=== PATIENT | female | born 1970 ===

== ENCOUNTER 2017-11-14 00:32 | Inpatient (IN) | payer OTHER ==
[2017-11-13 14:12] LABS: INR 0.94
[~2017-11-14] VITALS: Ht 154.9 cm; Wt 85.3 kg
[2017-11-14] VITALS (9 sets, daily range): BP systolic 116–136; BP diastolic 68–95
[~2017-11-14 00:32] MED LIST: AREDS PO; B12/1TAB3 PO; FLUN8.9H INH; LORA1TAB69 PO; MAX75 PO; [UNRECOGNIZED DRUG - OTHER] ASDIRECTED
--- NOTE | 2017-11-14 04:28 | HISTORY AND PHYSICAL ---
DATE OF ADMISSION: November 14, 2017 IDENTIFICATION, CHIEF COMPLAINT Carleen is a 46-year-old woman with a chief complaint of left knee pain. HISTORY OF PRESENT ILLNESS Patient has a longstanding history of left knee arthritis that is progressively painful and debilitating, refractory to conservative care. Surgery is indicated to relieve symptoms after failure of nonoperative measures. PAST MEDICAL HISTORY Notable for generally excellent health. She does have some allergy and exercise -induced asthma. CURRENT MEDICATIONS She takes Claritin once a day, no prescription medicine. ALLERGIES She does have a hiving reaction to TYLENOL. No other drug allergies. PAST SURGICAL HISTORY Operations include five shoulder surgeries, three prior knee surgeries, two wrist operations, treatment for tubal ectopic , hysterectomy and tonsillectomy. FAMILY HISTORY Noncontributory. SOCIAL HISTORY Negative for tobacco and alcohol use. REVIEW OF SYSTEMS: Negative. PHYSICAL EXAMINATION GENERAL: This is a well-developed, well-nourished female who appears stated age. HEENT: She is normocephalic, atraumatic. NECK: Supple. LUNGS: Clear. HEART: Regular. ABDOMEN: Soft. ORTHOPEDIC EXAM: The knee is stiff at end range. She has an effusion is present. Extensor function is intact. Gross stability is good. RADIOGRAPHIC DATA Radiographs demonstrate end-stage DJD. ASSESSMENT Left knee end-stage degenerative joint disease, progressively painful and debilitating, refractory to conservative care. PLAN Per patient request, will proceed with total knee arthroplasty. Nature of the procedure, risks, benefits, and nonoperative alternatives are reviewed. Risks of the procedure include, but are not limited to, , major medical or anesthetic complication, infection, neurovascular injury, blood transfusion, stiffness, scarring, fracture, tendon rupture, instability, implant loosening, migration or failure, persistent or recurrent pain, need for additional surgery , and other unforeseen. She understands and wishes to proceed. Signed permit was placed in the chart, no guarantees are given or implied. BRIDGER
[2017-11-14] MEDS ORDERED: TRANEXAMIC AC 1000 MG/10ML SDV 1,000 MG in DEXTROSE 5% 50 ML BAG 50 ML IV ONE (09:15)
[2017-11-14] MEDS ORDERED: NORMOSOL R SOLN(*) 1000 ML BAG 1,000 ML IV PRN ×2 (09:15→12:35)
[2017-11-14] MEDS ORDERED: cloNIDine EPIDUR INJ 100MCG/ML 40 MCG, ROPIVACAINE 0.5% 20 ML VIAL 25 ML, EPINEPHrine H... INJ ONE (09:15)
[2017-11-14] MEDS ORDERED: PREGABALIN 150 MG CAPSULE PO ONE (09:15)
[2017-11-14] MEDS ORDERED: LIDOCAINE/SOD BICARB 8.4% SYR ID ONE (09:15)
[2017-11-14] MEDS ORDERED: FAMOTIDINE 20 MG TAB PO ONE (09:15)
[2017-11-14] MEDS ORDERED: CELECOXIB 200 MG CAP PO ONE (09:15)
[2017-11-14] MEDS ORDERED: ceFAZolin(*) 2GM/D5W 50ML 50 ML IVPB ONE (09:15)
[2017-11-14] MEDS ORDERED: MIDAZOLAM 2 MG/2 ML VIAL IVP PRN (09:15)
[2017-11-14] MEDS ORDERED: PROPOFOL EMUL(*) 10MG/ML 20 ML 20 ML ONE (10:19)
[2017-11-14] MEDS ORDERED: DEXAMETHASONE SOD PHOS 10MG/ML ONE (10:19)
[2017-11-14] MEDS ORDERED: ONDANSETRON 4 MG/2 ML VIAL ONE (10:19)
[2017-11-14] MEDS ORDERED: LACTATED RINGER 3000 ML BAG IR ONE (11:24)
[2017-11-14] MEDS ORDERED: METOPROLOL TART 5 MG/5 ML VIAL ONE (11:26)
[2017-11-14] MEDS ORDERED: BISACODYL 10 MG SUPP PR PRN (12:35)
[2017-11-14] MEDS ORDERED: BENZOCAINE/MENTHOL 1 EACH LOZG PO PRN (12:35)
[2017-11-14] MEDS ORDERED: diphenhydrAMINE 50 MG/ML VIAL IVP PRN (12:35)
[2017-11-14] MEDS ORDERED: diphenhydrAMINE 25 MG CAP PO PRN (12:35)
[2017-11-14] MEDS ORDERED: PROMETHAZINE 25 MG/ML 1 ML AMP IVP PRN (12:35)
[2017-11-14] MEDS ORDERED: FLUSH 10 ML SYR IVP PRN (12:35)
[2017-11-14] MEDS ORDERED: ZOLPIDEM TARTRATE 5 MG TAB PO PRN (12:35)
[2017-11-14] MEDS ORDERED: fentaNYL CITR 100 MCG/2 ML AMP ONE ×2 (13:03→13:35)
--- NOTE | 2017-11-14 13:35 | RADIOLOGY IMAGING REPORT ---
FACILITY: [facility] PATIENT NAME: Carleen Naik : 1970 MR: [id number] V: [id number] EXAM DATE: ORDERING PHYSICIAN: DAT TUCKER TECHNOLOGIST: Location: Patient: Carleen Naik : 1970 Visit/Account:[id number] Date of Sevice: 11/14/2017 Exam type: KNEE LIMITED LEFT History: Status post left total knee arthroplasty Comparison: None. Findings: AP and lateral views of the left knee demonstrate a left knee arthroplasty in good anatomic alignment . Soft tissue gas and skin paty project over the anterior aspect this postoperative knee IMPRESSION: 1. As above Report Dictated By: Mayuri Morrison MD at 11/14/2017 1:31 PM Report E-Signed By: Mayuri Morrison MD at 11/14/2017 1:32 PM WSN:[id number]
[2017-11-14] MEDS: oxyCODONE HCL 5 MG CAP PO PRN ×3 (14:10→22:18)
--- NOTE | 2017-11-14 14:21 | Hospitalist Progress Note ---
Subjective Progress Notes Subjective Patient seen post-op. She reports doing well. No CP/SOB/N/V. Reviewed PMHx and medications. Physical Exam Vital Signs Date Time Temp Pulse Resp B/P (MAP) Pulse Ox O2 Delivery O2 Flow Rate FiO2 11/14/17 14:08 97.8 82 16 132/84 (100) 95 Nasal Cannula 2.0 Intake and Output 11/15/17 06:59 Intake Total 3000 ml Output Total 20 ml Balance 2980 ml Intake IV Total 1500 ml Other 1500 ml Output Estimated Blood Loss 20 ml General Appearance: Alert, Awake Cardiovascular: Regular Rate and Rhythm Respiratory: Clear to Auscultation Assessment and Plan Problems: (1) HTN (hypertension) Status: Chronic Assessment & Plan: Will monitor BPs and resume her Maxzide as needed. (2) S/P knee replacement Status: Acute Assessment & Plan: She appears stable post-op. She has no history of DVT/PE. She will be on aspirin 325mg daily for prophylaxis as per Dr. Go. ANJEL SYED MD Nov 14, 2017 14:20
--- NOTE | 2017-11-14 14:51 | OPERATIVE REPORT 1 ---
EVENT DATE: November 14, 2017 SURGEON: Dakota Go MD ANESTHESIOLOGIST: Fili Hartmann MD ANESTHESIA: General plus spinal. INSULATION PACKER: GERMÁN Calvo PREOPERATIVE DIAGNOSIS Left knee degenerative joint disease. POSTOPERATIVE DIAGNOSIS Left knee degenerative joint disease. PROCEDURE PERFORMED Left total knee arthroplasty. ESTIMATED BLOOD LOSS Minimal. DRAINS None. SPECIMENS None. COMPLICATIONS None apparent. TOURNIQUET TIME 51 minutes IMPLANTS USED [employer] Triathlon knee system, a 3 left PS femur, a 3 standard tibial baseplate , a 31 mm universal, symmetric, all-polyethylene patellar button, an 11 mm PS tibial tray liner, polyethylene is X3. INDICATIONS Carleen is a 47-year-old woman with intractable pain and disability related to end-stage knee arthritis after a remote history of meniscectomy. Surgery is indicated to relieve pain and improve function after failure of nonoperative measures. DESCRIPTION OF PROCEDURE Patient was taken to the operating room and placed supine on the operating table. Spinal block was administered by the anesthesiologist. General anesthesia was induced. Antibiotics and TXA were administered IV. Left lower extremity was prepped and draped in the usual sterile fashion for knee arthroplasty. Limb was exsanguinated with an Esmarch bandage. Tourniquet inflated to 250 mmHg. Midline longitudinal incision made, carried down through the skin and subcutaneous tissue to the extensor mechanism. Full-thickness flaps were developed far enough medially to allow medial parapatellar arthrotomy be performed. Patella was everted. Knee was brought into the flexed position. Fat pad, anterior horns of the menisci, and the cruciate ligaments are debrided. A subperiosteal medial release is initiated in a titrated fashion to start to balance the knee. A step drill is used to enter the distal femur. A 10-inch long alignment guide is used to engage the isthmus , cut set for 6 degrees of valgus relative to the anatomic axis. The 10 mm resection block is applied, pinned, cuts made with an oscillating saw. AP sizing guide is applied to the distal femoral cut, positioned for 3 degrees of external rotation relative to the posterior condyles. The size 3 is optimal without risk of notching. The four-in-one cutting block is applied. Anterior, posterior, posterior chamfer, and anterior chamfer cuts are made respectively. PS block is applied and centered. Medial and lateral bone is removed through the box. Trial femur has nice fit. Attention is turned to tibial preparation. Extramedullary guide is applied, positioned for varus, valgus, posterior slope , and rotation. This is set to resect 9 mm from the relatively intact lateral tibial plateau. It is dropped down a millimeter or two to ensure an adequate cut. Block is pinned. Extramedullary alignment check is made and cuts made with an oscillating saw. After removal of all spurs, gaps are balanced and symmetric with no additional releases required. The size 3 tibial baseplate provides optimum bony coverage without soft tissue overhang. This is inserted along with the trial liner and trial femur. Knee is brought to extension. Patella is taken from the starting thickness of 22 mm to a residual of 14 with a patellar clamp and oscillating saw. The 31 provides optimum bony coverage without soft tissue overhang. Lug holes are drilled. Patella tracks nicely with the no-touch technique. Final tibial preparation consists of assuring appropriate rotational and translational positioning of the component. Boss is reamed. Fin is punched. Surfaces are copiously lavaged. Mixed methacrylate is made and components cemented in a single stage. Once the cement is fully polymerized, tourniquet is deflated. Hemostasis is assured. All loose debris is lavaged from the knee joint. The 11 PS fills up the gap ideally. The actual liner is then locked into the baseplate. Joint is reduced. Arthrotomy is closed in flexion with #2 Ethibond, subcutaneous tissue with 3-0 Vicryl, skin with surgical paty. Xeroform and 4 x 4's applied as a dry, sterile dressing and compression wrap. The patient is awakened from anesthesia and taken to the recovery room in stable condition having tolerated the procedure well. Plan is for standard TKA rehab protocol. [facility]
[2017-11-14] MEDS: DIAZEPAM 5 MG TAB PO PRN (16:16)
[2017-11-14] MEDS: CELECOXIB 200 MG CAP PO SCH (16:16)
[2017-11-14] MEDS ORDERED: NS(*) 0.9% 500 ML BAG 500 ML ONE (18:00)
[2017-11-14] MEDS: ceFAZolin(*) 1 GM VIAL 1 GM in NS(*) 0.9% 100 ML ADDVANT BAG 100 ML IVPB SCH (18:11)
[2017-11-15] MEDS: DIAZEPAM 5 MG TAB PO PRN ×4 (00:31→21:23)
[2017-11-15] MEDS: ceFAZolin(*) 1 GM VIAL 1 GM in NS(*) 0.9% 100 ML ADDVANT BAG 100 ML IVPB SCH ×2 (02:31→10:23)
[2017-11-15] MEDS: oxyCODONE HCL 5 MG CAP PO PRN ×6 (02:32→22:47)
[2017-11-15 02:40] VITALS: BP 141/86
--- NOTE | 2017-11-15 06:09 | Hospitalist Progress Note ---
Subjective Progress Notes Subjective She only c/o pain in surgical site and some dizziness when up to BR earlier. Physical Exam Vital Signs Date Time Temp Pulse Resp B/P (MAP) Pulse Ox O2 Delivery O2 Flow Rate FiO2 11/15/17 02:40 97.6 83 15 141/86 (104) 98 Nasal Cannula 2.0 General Appearance: Alert, Awake Cardiovascular: Regular Rate and Rhythm Respiratory: Clear to Auscultation Assessment and Plan Problems: (1) HTN (hypertension) Status: Chronic Assessment & Plan: BPs acceptable. Will continue to monitor BPs and resume her Maxzide as needed. (2) S/P knee replacement Status: Acute Assessment & Plan: She appears stable post-op. She will be on aspirin 325mg daily for prophylaxis as per Dr. Go. Exam Sepsis Risk: No Definite Risk ANJEL SYED MD Nov 15, 2017 06:09
[2017-11-15 07:24] VITALS: BP 148/84
[2017-11-15] MEDS: CELECOXIB 200 MG CAP PO SCH ×2 (07:29→17:36)
[2017-11-15] MEDS ORDERED: TRIAMTERENE/HCTZ 75-50MG TAB PO SCH (09:00)
[2017-11-15] MEDS: MAGNESIUM SULFATE PO SCH (09:39)
[2017-11-15] MEDS: ASPIRIN 325 MG TAB PO SCH (09:39)
[2017-11-15 11:57] VITALS: BP 147/89
[2017-11-15 14:31] VITALS: Ht 154.9 cm; Wt 85.3 kg
[2017-11-15 15:51] VITALS: BP 142/82
[2017-11-15 20:39] VITALS: BP 150/103
[2017-11-15] MEDS: MAGNESIUM HYDROXIDE* 30ML UDCP PO PRN (21:23)
[2017-11-16] MEDS: oxyCODONE HCL 5 MG CAP PO PRN ×3 (02:42→11:30)
[2017-11-16 02:43] VITALS: BP 158/97
[2017-11-16] MEDS: DIAZEPAM 5 MG TAB PO PRN ×2 (03:39→10:04)
[2017-11-16 07:30] VITALS: BP 141/88
[2017-11-16] MEDS ORDERED: CELE-1 PO (08:42)
[2017-11-16] MEDS ORDERED: HYDR-4308 PO (08:42)
[2017-11-16] MEDS: CELECOXIB 200 MG CAP PO SCH (08:49)
[2017-11-16] MEDS: MAGNESIUM SULFATE PO SCH (08:49)
[2017-11-16] MEDS: MAGNESIUM HYDROXIDE* 30ML UDCP PO PRN (08:49)
[2017-11-16] MEDS: ASPIRIN 325 MG TAB PO SCH (08:49)
[2017-11-16] MEDS ORDERED: LORA-809 PO (08:58)
[2017-11-16] MEDS ORDERED: TRIAMTERENE/HCTZ 75-50MG TAB PO SCH (09:00)
[2017-11-16] MEDS ORDERED: DOCUSATE SODIUM 100 MG CAP PO SCH (09:00)
[2017-11-16] MEDS ORDERED: VIT1CAPS34 PO (09:02)
[2017-11-16] MEDS ORDERED: ASPI-757 PO (09:03)
--- NOTE | 2017-11-16 14:53 | Hospitalist Progress Note ---
Subjective Progress Notes Subjective No new complaints. Physical Exam Vital Signs Date Time Temp Pulse Resp B/P (MAP) Pulse Ox O2 Delivery O2 Flow Rate FiO2 11/16/17 07:30 98.6 106 18 141/88 (105) 93 Room Air 11/16/17 02:43 1.0 Intake and Output 11/17/17 07:00 Intake Total 720 ml Balance 720 ml Intake Oral 720 ml General Appearance: Alert, Awake, No Acute Distress Eyes: PERRLA Cardiovascular: Regular Rate and Rhythm Respiratory: Clear to Auscultation Extremities: Warm, Perfused Integumentary: Other (Surgical wound bandaged.) Psych: Appropriate Mood & Affect Assessment and Plan Problems: (1) HTN (hypertension) Status: Chronic Assessment & Plan: BPs increased. Will restart Maxzide. (2) S/P knee replacement Status: Acute Assessment & Plan: She appears stable post-op. She will be on aspirin 325mg daily for prophylaxis as per Dr. Go. Time Spent on Plan of Care: < 30 min Exam Sepsis Risk: No Definite Risk SULEIMAN SYED MD Nov 16, 2017 14:53
== END 2017-11-16 11:40 | disposition home or self-care (01) | DRG 470 ==
LOC: OR 00:32 → MED 14:00
PROVIDERS: ADMIT Orthopaedic Surgery; ATTEND Orthopaedic Surgery
PROC: 0SRD0J9 Replacement of Left Knee Joint with Synthetic Substitute, Cemented, Open Approach (ICD-10-PCS; principal; 2017-11-14 09:47)
DX: M17.12 Unilateral primary osteoarthritis, left knee (principal); J45.990 Exercise induced bronchospasm; I10 Essential (primary) hypertension; K21.9 Gastro-esophageal reflux disease without esophagitis; E66.9 Obesity, unspecified; Z88.8 Allergy status to other drugs, medicaments and biological substances; Z90.710 Acquired absence of both cervix and uterus; Z68.35 Body mass index [BMI] 35.0-35.9, adult
CPT/HCPCS: 36415; 85610; 86850; 86900; 86901; 97161; C1713; C1776; J0171; J0690; J0735; J1100; J1200; J1885; J2250; J2405; J2704; J2795; J3010; J3490; J7040; J7050; J7060